=== PATIENT | male | born 1970 ===

== ENCOUNTER 2020-09-16 18:31 | Emergency (ER) | payer SELFPAY ==
[~2020-09-16] VITALS: Ht 170.2 cm; Wt 66.0 kg
[2020-09-16 18:43] VITALS: BP 138/96
[2020-09-16] MEDS ORDERED: ONDANSETRON ODT 4 MG PO ONE (22:30)
[2020-09-16] MEDS ORDERED: OXYcodone/APAP 5/325MG TABLET PO ONE (22:30)
[2020-09-16] MEDS ORDERED: KETOROLAC 30 MG/1 ML IM ONE (22:30)
[2020-09-16] MEDS ORDERED: CYCLOBENZAPRINE 10 MG TABLET PO ONE (22:30)
== END 2020-09-16 23:03 | disposition home or self-care (01) ==
LOC: ED 18:40
DX: S39.012A Strain of muscle, fascia and tendon of lower back, initial encounter (principal); X58.XXXA Exposure to other specified factors, initial encounter; Y93.89 Activity, other specified; Y92.89 Other specified places as the place of occurrence of the external cause; Y99.8 Other external cause status
CPT/HCPCS: 72110; 99283